=== PATIENT | male | born 1980 | race Caucasian/White ===

== ENCOUNTER 2017-07-09 10:59 | Emergency (ER) | payer MEDICAID ==
[~2017-07-09] VITALS: Ht 165.1 cm; Wt 74.8 kg
[2017-07-09 11:04] VITALS: BP 133/76; PULSE 79; RESP 16; TEMP 98.3; O2SAT 97
[2017-07-09] MEDS ORDERED: BENZ100 PO (11:43)
--- NOTE | 2017-07-09 11:43 | PD ---
HPI Chief Complaint: Cold / Flu Symptoms Time Seen by Provider: 11:21 Travel History International Travel<30 days: No Contact w/Intl Traveler<30days: No Traveled to known affect area: No History of Present Illness HPI This is a 37-year-old male here for evaluation of mild flulike illness 3 days. He is reporting sore throat, subjective fever, cough, body aches, several episodes of diarrhea yesterday. He denies abdominal pain. No diarrhea today. Symptom severity is mild. No aggravating or alleviating factors. PFSH Past Medical History Medical History: Denies Significant Hx Diminished Hearing: No Influenza Vaccination: No ?: Not Social History Alcohol Use: No Tobacco Use: No Substance Use: No Allergies-Medications (Allergen,Severity, Reaction): Coded Allergies: nitrous oxide (Verified Adverse Reaction, Unknown, ANGRY AND HYPERTENSIVE , 07/09/17) Reported Meds & Prescriptions Reported Meds & Active Scripts Active No Active Prescriptions or Reported Medications Review of Systems Except as stated in HPI: all other systems reviewed are Neg Eyes: No: Visual changes HENT: Positive: Sore Throat, Congestion Cardiovascular: No: Chest Pain or Discomfort Respiratory: Positive: Cough Gastrointestinal: Positive: Diarrhea Genitourinary: No: Dysuria Musculoskeletal: Positive: Myalgias Skin: No Rash Physical Exam Narrative GENERAL: Alert and well-appearing 37-year-old male SKIN: Warm and dry. No rash HEAD: Normocephalic. EYES: No injection or drainage. Ear/nose/throat: No nasal discharge. Mild pharyngeal erythema without tonsillar particular exudate. Uvula is midline. Airway is patent. NECK: Supple. No meningismus CARDIOVASCULAR: Regular rate and rhythm RESPIRATORY: Breath sounds equal bilaterally. No accessory muscle use. GASTROINTESTINAL: Abdomen soft, non-tender, nondistended. No rebound or guarding. MUSCULOSKELETAL: No cyanosis, or edema. BACK: Nontender without obvious deformity. No CVA tenderness. Data Data Last Documented VS Vital Signs Date Time Temp Pulse Resp B/P (MAP) Pulse Ox O2 Delivery O2 Flow Rate FiO2 07/09/17 11:04 98.3 79 16 133/76 (95) 97 MDM Medical Decision Making Medical Screen Exam Complete: Yes Emergency Medical Condition: Yes Differential Diagnosis Influenza, bronchitis, pneumonia, gastroenteritis Narrative Course 37-year-old male here with mild flulike illness 3 days. He has not within the timeframe for Tamiflu. He appears well-hydrated. Vital signs are stable. Symptom any treatment was discussed with patient. Diagnosis Primary Impression: Influenza-like illness Referrals: Primary Care Physician Departure Forms: Tests/Procedures, Work Release Enter return to work date: Jul 12, 2017 Additional Instructions: Tylenol and ibuprofen as needed for pain and fever. Stay well hydrated by drinking water and Gatorade. Follow-up the primary doctor Scripts Benzonatate (Theron Marie) 100 Mg Cap 200 MG PO TID Y for COUGH, #14 CAP 0 Refills Prov: Melissa Oleary 07/09/17 Disposition: DISCHARGE HOME Condition: Stable Melissa Oleary Jul 09, 2017 11:43
== END 2017-07-09 12:06 | disposition home or self-care (01) ==
LOC: PHEFT 10:59
DX: J11.1 Influenza due to unidentified influenza virus with other respiratory manifestations (principal)
CPT/HCPCS: 99283